=== PATIENT | female | born 1950 | race Two or more races ===

== ENCOUNTER 2018-04-26 19:42 | Inpatient (IN) | payer OTHER ==
[~2018-04-26] VITALS: Ht 157.5 cm; Wt 57.6 kg
[2018-04-26] MEDS ORDERED: ATENOLOL100 MG PO (20:27)
[2018-04-26] MEDS ORDERED: FENTANYL1 EAC1 PO (20:27)
[2018-04-26] MEDS ORDERED: PEPCID40 MG PO (20:28)
[2018-04-26] MEDS ORDERED: TRAMADOL HCL100 M1 PO (20:28)
== END 2018-05-03 17:48 | disposition other institution (70) | DRG 389 ==
LOC: ER 19:42 → SEC-K 04-28 08:37 → MEDI 04-28 11:42
PROC: 3E0336Z Introduction of Nutritional Substance into Peripheral Vein, Percutaneous Approach (ICD-10-PCS; 2018-04-28)
PROC: 0DJ68ZZ Inspection of Stomach, Via Natural or Artificial Opening Endoscopic (ICD-10-PCS; principal; 2018-05-01)
DX: K56.690 Other partial intestinal obstruction (principal); J90 Pleural effusion, not elsewhere classified; C78.7 Secondary malignant neoplasm of liver and intrahepatic bile duct; C78.6 Secondary malignant neoplasm of retroperitoneum and peritoneum; R18.0 Malignant ascites; C50.812 Malignant neoplasm of overlapping sites of left female breast; Z53.09 Procedure and treatment not carried out because of other contraindication